=== PATIENT | male | born 1990 | race African-American/Black ===

== ENCOUNTER 2016-12-14 10:14 | Emergency (ER) | payer BC ==
[~2016-12-14] VITALS: Ht 172.7 cm; Wt 77.5 kg
[2016-12-14 10:20] VITALS: TEMP 37.1; Ht 172.7 cm; Wt 77.5 kg
[2016-12-14 11:26] VITALS: BP 123/69; PULSE 87; O2SAT 97
--- NOTE | 2016-12-14 12:07 | EMERGENCY ROOM VISIT NOTE ---
History First contact with patient: 10:56 Chief Complaint: STD MALE Stated Complaint: STD CHECK Nursing Triage Summary: pt requesting an std check, denies any exposure or symptoms History of Present Illness The patient is a 26 year old male who presents to the Emergency Room for evaluation of STDs. The patient does not have any known exposures or any symptoms. He does report having unprotected sex over the past few months. He does not have fever or chills. No abdominal or testicular pain no urethral discharge. No history of previous STDs. No IV drug abuse. Review of Systems More than 10 systems were reviewed and otherwise negative with the exception of history of present illness. Past Medical/Surgical History No chronic medical disease Family History No pertinent family history Social History Smoking Status: Never Smoker Marital Status: in relationship Current/Historical Medications No Active Prescriptions or Reported Meds Allergies Coded Allergies: No Known Allergies (Unverified , 12/14/16) Physical Exam Vital Signs Date Time Temp Pulse Resp B/P Pulse Ox O2 Delivery O2 Flow Rate FiO2 12/14/16 11:26 87 16 123/69 97 Room Air 12/14/16 10:20 37.1 101 18 167/91 95 Room Air Pain Rating (0-10): 0 Physical Exam VITALS: Vitals are noted on the nurse's note and reviewed by myself. Vital signs stable. GENERAL: Well-developed, well-nourished, black male, who is in no acute distress and resting comfortably. Patient is cooperative with the examination. HEAD: Normocephalic atraumatic. HEART: Regular rate and rhythm without murmurs gallops or rubs. LUNGS: Clear to auscultation bilaterally without wheezes, rales or rhonchi. No retractions or accessory muscle use. ABDOMEN: Positive normal bowel sounds x 4. Soft, nontender, without masses or organomegaly. No guarding or rebound tenderness. Medical Decision & Procedures ED Course Physical exam and history were performed. Nursing notes and EMR were reviewed. Patient appears to have concerns for possible STD exposure. I asked the patient what he was specifically concerned about, and he replied "all of them". I explained to the patient that we would not have results of any STD testing today. I did offer him Zithromax and Rocephin out of concern for possible gonorrhea or chlamydia. The patient and I had a lengthy discussion regarding options of care, as the HIV testing we are not able to do from the ER as notification of results and post test counseling is not something readily available from an emergency setting. The patient decided that he would utilize local free STD resources that may be able to provide this to him. This does appear reasonable. I did provide the patient with multiple local resources for STD testing. He was pleased with this and declined any other interventions from the emergency department. The patient was invited back to the ER for any new, worsening, or concerning symptoms. The chart was completed utilizing [employer] Speech Voice Recognition Software. Grammatical errors, random word insertions, pronoun errors, and incomplete sentences are an occasional consequence of this system due to software limitations, ambient noise, and hardware issues. Any formal questions or concerns about the content, text, or information contained within the body of this dictation should be directly addressed to the provider for clarification. . Medical Decision Differential diagnosis includes, but is not limited to: Exposure to STD, gonorrhea, chlamydia, HIV, hepatitis, syphilis, anxiety, and others Impression Primary Impression: Possible exposure to STD Departure Information Dispostion Home / Self-Care Condition GOOD Prescriptions No Active Prescriptions or Reported Meds Forms HOME CARE DOCUMENTATION FORM, IMPORTANT VISIT INFORMATION Patient Instructions My [facility] Additional Instructions You were seen and evaluated today on an emergency basis only. This is not a substitute for, or an effort to provide, complete comprehensive medical care. It is not possible to recognize and treat all injuries or illnesses in a single emergency department visit. For this reason it is recommended that you followup with the resources provided to you for STD testing. You are welcome to return to the emergency department anytime with new, worsening, or concerning symptoms.
== END 2016-12-14 11:27 | disposition home or self-care (01) ==
LOC: C.EDB 10:17 → C.EDD 11:27
DX: Z11.3 Encounter for screening for infections with a predominantly sexual mode of transmission (principal)